=== PATIENT | female | born 1975 | race Caucasian/White ===

== ENCOUNTER 2018-01-26 08:00 | Outpatient (CLI) | payer BC ==
[2018-01-26 12:37] LABS: HB2 TOTAL 14.8 g/dL; HEMOGLOBIN A1C 0.5 g/dL; HEMOGLOBIN A1C % 5.2 % (4.6-6.2)
[2018-01-26 12:45] LABS: ALBUMIN/GLOBULIN RATIO 1.2 (1.0-2.2); ALKALINE PHOSPHATASE 34 IU/L (42-121); ALT ALANINE AMINOTRANSFERASE 15 IU/L (10-60); AST ASPARTATE AMINOTRANSFERASE 20 IU/L (10-42); BILIRUBIN,TOTAL 0.5 mg/dL (0.2-1.0); BUN - BLOOD UREA NITROGEN 9 mg/dL (6-20); CALCIUM 8.8 mg/dL (8.5-10.3); CARBON DIOXIDE - CO2 27 mmol/L (21-32); CHLORIDE 101 mmol/L (101-111); CHOL/HDL RATIO 2.1 (<4.4); CHOLESTEROL 166 mg/dL; CREATININE 0.7 mg/dL (0.4-1.0); GFR - MDRD 93 (>89); GLUCOSE 86 mg/dL (70-100); HDL CHOLESTEROL 79 mg/dL; LDL CHOLESTEROL,CALCULATED 79 mg/dL; SODIUM 135 mmol/L (135-145); TOTAL PROTEIN 7.4 g/dL (6.7-8.2); VLDL CHOLESTEROL 8 mg/dL
[2018-01-26 12:57] LABS: BASOPHILS % (AUTO) 0.7 %; EOSINOPHILS # (AUTO) 0.1 10^3/uL (0.0-0.7); EOSINOPHILS % (AUTO) 1.1 %; HGB - HEMOGLOBIN 13.3 g/dL (12.0-16.0); LYMPHOCYTES # (AUTO) 1.5 10^3/uL (1.5-3.5); LYMPHOCYTES % (AUTO) 23.3 %; MEAN CORPUSCULAR HEMOGLOBIN 32.6 pg (27.0-31.0); MEAN CORPUSCULAR HGB CONC 34.1 g/dL (32.0-36.0); MEAN CORPUSCULAR VOLUME 95.5 fL (81.0-99.0); MEAN PLATELET VOLUME 9.3 fL (7.9-10.8); MONOCYTES # (AUTO) 0.5 10^3/uL (0.0-1.0); MONOCYTES % (AUTO) 7.1 %; NEUTROPHILS # (AUTO) 4.3 10^3/uL (1.5-6.6); NEUTROPHILS % (AUTO) 67.8 %; PLT - PLATELET COUNT 252 10^3/uL (130-450); RED BLOOD COUNT 4.06 10^6/uL (4.20-5.40); RED CELL DISTRIBUTION WIDTH 12.2 % (12.0-15.0); WHITE BLOOD COUNT 6.4 x10^3/uL (4.8-10.8)
== END 2018-01-26 08:01 | disposition home or self-care (01) ==
LOC: LAB.WCP 08:00
PROVIDERS: ATTEND Physician Assistant
DX: R53.83 Other fatigue (principal); Z00.00 Encounter for general adult medical examination without abnormal findings
CPT/HCPCS: 36415; 80053; 80061; 83036; 83721; 84443; 85025

== ENCOUNTER 2019-06-24 17:57 | Outpatient (CLI) | payer OTHER, BC | END 2019-06-24 17:58 | disposition critical access hospital (66) | LOC: EMS 17:57 | PROVIDERS: ATTEND Surgery | DX: M25.551 Pain in right hip (principal); V09.20XA Pedestrian injured in traffic accident involving unspecified motor vehicles, initial encounter; Y93.01 Activity, walking, marching and hiking; Y92.414 Local residential or business street as the place of occurrence of the external cause | CPT/HCPCS: A0425; A0429 ==

== ENCOUNTER 2019-06-24 18:18 | Emergency (ER) | payer OTHER, BC ==
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
[2019-06-24] MEDS ORDERED: IBUPROFEN 600 MG TABLET PO STA (19:57)
[2019-06-24] MEDS ORDERED: ACETAMINOPHEN 325 MG TABLET PO STA (19:57)
[2019-06-24 20:26] VITALS: BP 125/55
== END 2019-06-24 20:26 | disposition home or self-care (01) ==
LOC: EDUNIT# → EDBD → ED 18:18
DX: T14.8XXA Other injury of unspecified body region, initial encounter (principal); V03.10XA Pedestrian on foot injured in collision with car, pick-up truck or van in traffic accident, initial encounter
CPT/HCPCS: 99282; 99283; A9270

== ENCOUNTER 2019-07-01 10:46 | Outpatient (CLI) | payer BC ==
--- NOTE | 2019-07-02 07:54 | XRAY Report ---
Reason: RIGHT KNEE PAIN Procedure Date: 07/01/2019 Accession Number: [id number] / [id number] Procedure: WCP - Knee 3 View RT CPT Code: Final Report FULL RESULT: EXAM: RIGHT KNEE RADIOGRAPHY EXAM DATE: 07/01/2019 11:10 AM. CLINICAL HISTORY: RIGHT KNEE PAIN. COMPARISON: None. TECHNIQUE: 3 views. FINDINGS: Bones: Normal. No fractures or bone lesions. Joints: Normal. No effusion. No subluxations. Soft Tissues: Normal. No soft tissue swelling. IMPRESSION: Negative knee radiography. RADIA
== END 2019-07-01 23:59 | disposition home or self-care (01) ==
LOC: DI.WCP 10:46
PROVIDERS: ATTEND Family Medicine
DX: M25.561 Pain in right knee (principal)

== ENCOUNTER 2019-08-13 13:53 | Outpatient (CLI) | payer BC ==
--- NOTE | 2019-08-14 10:21 | MRI Report ---
Reason: KNEE PAIN RT Procedure Date: 08/13/2019 Accession Number: [id number] / [id number] Procedure: MRI - Knee RT W/O CPT Code: Final Report FULL RESULT: EXAM: RIGHT KNEE MRI WITHOUT CONTRAST EXAM DATE: 08/13/2019 02:15 PM. CLINICAL HISTORY: Right knee pain. COMPARISON: KNEE 3 VIEW RT 07/01/2019 10:46 AM. TECHNIQUE: Multiplanar, multisequence T1-weighted and fluid-sensitive sequences of the knee without contrast. Other: None. FINDINGS: Bones: Nondisplaced mildly comminuted proximal fibular head fracture with marrow edema. Mild bone bruises in the lateral femoral condyle and tibial plateau. 0.5 cm shallow grade 2 lateral tibial plateau osteochondral lesion. Articular Cartilage: Unremarkable. Medial Meniscus: The medial meniscus is intact. Lateral Meniscus: The lateral meniscus is intact. Cruciate Ligaments: The anterior and posterior cruciate ligaments are intact. Collateral Ligaments: Mild edema medial collateral ligament. Lateral collateral normal. Tendons: The quadriceps, patellar, semimembranosus, and popliteus tendons are unremarkable. Musculature: No edema or fatty atrophy. Other: Small effusion. No popliteal cyst. No loose bodies. The medial and lateral retinacula are intact. Mild lateral soft tissue swelling. IMPRESSION: 1. Nondisplaced proximal fibular head fracture and mild bone bruises of the lateral femoral condyle and tibial plateau. 2. Grade 1 medial collateral ligament sprain. 3. 0.5 cm shallow grade 2 lateral tibial plateau intra-articular osteochondral fracture. RADIA
== END 2019-08-13 13:54 | disposition home or self-care (01) ==
LOC: DI 13:53
PROVIDERS: ATTEND Physician Assistant Medical
DX: S82.831A Other fracture of upper and lower end of right fibula, initial encounter for closed fracture (principal); S82.141A Displaced bicondylar fracture of right tibia, initial encounter for closed fracture; S83.411A Sprain of medial collateral ligament of right knee, initial encounter

== ENCOUNTER 2020-03-02 08:12 | Outpatient (CLI) | payer OTHER, BC ==
--- NOTE | 2020-03-02 10:39 | MRI Report ---
PROCEDURE: Cervical Spine W/O INDICATIONS: HEADACHE, STRAIN OF MUSCLE, FASCIA AND TENDON TECHNIQUE: Noncontrast sagittal T1 spin echo and T2 fast spin echo, sagittal STIR, foraminal oblique sagittal T2 fast spin echo, and axial gradient echo and T2 fast spin echo through the cervical spine. COMPARISON: Correlation is made with prior cervical spine radiographs dated 11/08/2017. FINDINGS: Image quality: Diagnostic. Alignment and Curvature: There is normal bony alignment. Bone Marrow: Marrow demonstrates normal overall signal. Spinal Cord: Visualized spinal cord has normal size and signal. No cerebellar tonsillar herniation. Paraspinous Soft Tissues: No paravertebral masses. Prevertebral soft tissues are normal in thicknes s. C2-C3: Normal in appearance. C3-C4: Normal in appearance. C4-C5: Normal in appearance. C5-C6: Normal in appearance. C6-C7: Normal in appearance. C7-T1: Normal in appearance. IMPRESSION: No significant disc pathology, neuroforaminal narrowing, or central canal narrowing can be seen. Reviewed by: Lyle Solitario MD on 03/02/2020 9:38 AM OZZIE Approved by: Lyle Solitario MD on 03/02/2020 9:38 AM OZZIE Station ID: [id number]
== END 2020-03-02 08:13 | disposition home or self-care (01) ==
LOC: DI 08:12
PROVIDERS: ATTEND Chiropractor
DX: S16.1XXA Strain of muscle, fascia and tendon at neck level, initial encounter (principal); G44.89 Other headache syndrome
CPT/HCPCS: 72141

== ENCOUNTER 2020-07-31 09:37 | Outpatient (CLI) | payer OTHER, BC ==
--- NOTE | 2020-07-31 17:12 | XRAY Report ---
PROCEDURE: Knee 4 View RT INDICATIONS: R KNEE PX TECHNIQUE: 4 views of the right knee(s) were acquired. COMPARISON: None. FINDINGS: Bones: No fractures or dislocations. No suspicious bony lesions. Soft tissues: No joint effusion. No suspicious soft tissue calcifications. IMPRESSION: No fracture. No osseous lesion. If there are persistent symptoms or continued clinical concern for pa thology, then repeat plain film radiographs (7-10 days) or advanced imaging (CT, MR, bone scan) shoul d be considered for further evaluation. Reviewed by: Keri Bhatt MD, PhD on 07/31/2020 5:11 PM PST Approved by: Keri Bhatt MD, PhD on 07/31/2020 5:11 PM PST Station ID: [id number]
== END 2020-07-31 23:59 | disposition home or self-care (01) ==
LOC: DI.N 09:37
PROVIDERS: ATTEND Orthopaedic Surgery
DX: M25.561 Pain in right knee (principal)

== ENCOUNTER 2020-09-20 08:00 | Outpatient (CLI) | payer BC, OTHER ==
[2020-09-20 18:51] LABS: BASOPHILS % (AUTO) 0.5 %; EOSINOPHILS # (AUTO) 0.1 10^3/uL (0.0-0.7); EOSINOPHILS % (AUTO) 1.4 %; HGB - HEMOGLOBIN 13.4 g/dL (12.0-16.0); LYMPHOCYTES # (AUTO) 2.5 10^3/uL (1.5-3.5); LYMPHOCYTES % (AUTO) 32.5 %; MEAN CORPUSCULAR HEMOGLOBIN 33.4 pg (27.0-31.0); MEAN CORPUSCULAR VOLUME 101.2 fL (81.0-99.0); MEAN PLATELET VOLUME 11.5 fL (7.9-10.8); MONOCYTES # (AUTO) 0.5 10^3/uL (0.0-1.0); MONOCYTES % (AUTO) 5.9 %; NEUTROPHILS # (AUTO) 4.5 10^3/uL (1.5-6.6); NEUTROPHILS % (AUTO) 59.4 %; PLT - PLATELET COUNT 246 10^3/uL (130-450); RED BLOOD COUNT 4.01 10^6/uL (4.20-5.40); RED CELL DISTRIBUTION WIDTH 11.9 % (12.0-15.0); WHITE BLOOD COUNT 7.6 x10^3/uL (4.8-10.8)
[2020-09-20 18:55] LABS: ALBUMIN 4.1 g/dL (3.2-5.5); ALBUMIN/GLOBULIN RATIO 1.3 (1.0-2.2); BILIRUBIN,TOTAL 0.6 mg/dL (0.2-1.0); CALCIUM 9.2 mg/dL (8.5-10.3); CREATININE 0.5 mg/dL (0.4-1.0); TOTAL PROTEIN 7.3 g/dL (6.7-8.2)
== END 2020-09-20 23:59 | disposition home or self-care (01) ==
LOC: LAB.WCP 08:00
PROVIDERS: ATTEND Physician Assistant
DX: N95.1 Menopausal and female climacteric states (principal)
CPT/HCPCS: 36415; 80053; 84443; 85025